=== PATIENT | male | born 1970 | race Caucasian/White ===

== ENCOUNTER 2020-12-16 08:19 | Emergency (ER) | payer MEDICARE ==
[~2020-12-16 08:19] MED LIST: BACLOFEN 10MG T10 MG PO; FLOMAX0.4 MG PO; KETOROLAC TROME10 MG PO; NEURONTIN600 MG PO; ONDANSETRON ODT4 MG SL; PROTONIX 40MG T40 MG PO; VITAMIN D50000 UNIT PO; VOLTAREN **OUT50 MG PO; ZOCOR10 MG PO
[2020-12-16 09:02] LABS: BILIRUBIN NEGATIVE (NEGATIVE); BLOOD TRACE-LYSED Ery/uL (NEGATIVE); CLARITY CLEAR (CLEAR); COLOR YELLOW (YELLOW); GLUCOSE (U) NORMAL (NORMAL); LEUKOCYTES NEGATIVE Leu/uL (NEGATIVE); NITRITE NEGATIVE (NEGATIVE); PROTEIN NEGATIVE (NEGATIVE); SPECIFIC GRAVITY >=1.030 (1.001-1.030); UROBILINOGEN 0.2 mg/dL (0.2-1.0)
[2020-12-16 09:12] LABS: MUCOUS TRACE; SQUAMOUS EPITHELIAL CELLS RARE; URINARY RBC RARE; URINARY WBC RARE
== END 2020-12-16 10:02 | disposition home or self-care (01) ==
LOC: FER 08:19
PROVIDERS: Emergency Medicine
DX: M54.50 Low back pain, unspecified (principal); G89.29 Other chronic pain; Z88.5 Allergy status to narcotic agent
CPT/HCPCS: 81001